=== PATIENT | female | born 1955 | race Caucasian/White ===

== ENCOUNTER 2020-11-03 11:30 | Observation (INO) ==
--- NOTE | 2020-08-24 14:23 | PAT Medication Instructions ---
Medication Instructions Date of Service August 24, 2020 Home Medications aspirin 81 mg tablet,delayed release 81 mg PO QAM latanoprost 0.005 % eye drops 1 drp OPB HS multivitamin 1 tab PO QAM valsartan 160 mg-hydrochlorothiazide 25 mg tablet 1 tab PO QAM celecoxib [Celebrex] 200 mg PO DAILY PRN ASK your surgeon for instructions celecoxib [Celebrex] 200 mg PO DAILY PRN DO NOT take the morning of surgery multivitamin 1 tab PO QAM valsartan 160 mg-hydrochlorothiazide 25 mg tablet 1 tab PO QAM Take morning of surgery With a small sip of water, OTHERWISE NOTHING TO EAT OR DRINK AFTER MIDNIGHT: aspirin 81 mg tablet,delayed release 81 mg PO QAM Take evening before surgery latanoprost 0.005 % eye drops 1 drp OPB HS Other Notes If you have any questions please call us at [phone] or [phone] or [phone] or [phone]
--- NOTE | 2020-08-27 08:27 | Anesthesiology Consultation ---
Date of Service August 27, 2020 Assessment & Plan (1) Encounter for pre-operative examination: COVID Status: As of 08/27 assessment, patient denies travel to endemic area, known exposure/sick contacts, or symptoms of COVID19. Patient instructed that they and their household members must follow strict social distancing guidelines, wear a mask in public and avoid travel/events/gatherings for 14 days prior to surgery. Preoperative COVID19 testing to be completed prior to surgery per surgeon's arrangements (10/04). Patient made aware to self-isolate as much as possible between COVID testing and surgery. Chart Review Chart Review: Acceptable Risk for Surgery and Patient seen in Pre Admission Testing Teaching & Discussion Instructed NPO after midnight before surgery, except medications with 15 cc of water. Medication instructions provided according to the PAT guidelines. History Surgery Operation Date: 10/08/20 07:15 Proposed Procedures p Right Total Knee Arthroplasty - Darci Levine MD Height/Weight Height: 5 ft 3 in Weight: 80.1 kg Allergies Allergy/AdvReac Type Severity Reaction Status Date / Time No Known Allergies Allergy Verified 08/20/20 15:25 Medications Home Medications Medication Instructions Recorded Confirmed Last Taken aspirin 81 mg tablet,delayed 81 mg PO QAM 05/14/20 08/20/20 Unknown release latanoprost 0.005 % eye drops 1 drp OPB HS 05/14/20 08/20/20 Unknown multivitamin 1 tab PO QAM 05/14/20 08/20/20 Unknown valsartan 160 1 tab PO QAM 05/14/20 08/20/20 Unknown mg-hydrochlorothiazide 25 mg tablet celecoxib [Celebrex] 200 mg PO DAILY PRN 08/20/20 08/20/20 Unknown Past Medical History Medical History Glaucoma HTN (hypertension) Hx of breast cancer RT (SURGERY AND CHEMO) Osteoarthritis Right knee DJD Exercise / Class Metabolic Activity II 4-5 Yardwork/Stairs/Walk up hill Past Family History Family History Other Breast cancer No family history of adverse response to anesthesia Past Surgical History Surgical History History of colonoscopy History of mastectomy RT History of tonsillectomy and adenoidectomy Hx of total hysterectomy [place] teeth removed Past Anesthesia History No Hx of Anesthesia Complications and No Family Hx of Anesthesia Complications History of PONV No Hx of PONV and No Hx of Motion Sickness (single episode of seasickness) Social History Smoking Status: Never smoker Do You Dip or Chew Tobacco: No Hx Alcohol Use: Yes Alcohol type: wine alcohol intake frequency: holidays/special occasions only substance use type: does not use Review of Systems Pt denies any recent chest pain, shortness of breath, palpitations, cough, fever, URI, or uncontrolled acid reflux. Physical Exam Vital Signs BP: 148/84 P: 96bpm SPO2: 99% RA T: 98.5 F R: 16 ENMT Mouth: + restricted motion of mouth and + small oral opening Thyromental Distance: < 3.5 Finger Breadths (3) Mallampati Class: III Neck neck extension not limited Respiratory normal respiratory effort, lungs clear to auscultation Cardiovascular RRR, no murmur, no edema Testing Laboratory Results 08/27/20 08:40 08/27/20 08:40 PT 9.9 Seconds (9.0-12.0) 08/27/20 08:40 INR 1.0 (0.9-1.1) 08/27/20 08:40 APTT 24.0 Seconds (21.0-31.0) 08/27/20 08:40 Blood Type A Positive 08/27/20 08:40 Antibody Screen NEGATIVE 08/27/20 08:40 Electrocardiogram Date: 08/27/20 Findings: + NSR @ (81bpm) Chest X-Ray Date: 08/27/20 Findings: + NAD
--- NOTE | 2020-08-27 09:11 | XRay Report ---
XR chest Pre-admission PA/Lat CLINICAL HISTORY: Preoperative chest COMPARISON STUDY: No previous studies for comparison. FINDINGS: The heart is borderline enlarged. There is no failure. There is no focal pulmonary consolid ation. There are no pleural effusions. Post surgical changes involve the right breast.[ IMPRESSION: No active disease in the chest. ACT 112: Negative or not required by law. Electronically signed by: Bernard Palacios M.D. 08/27/2020 9:10 AM
[2020-08-27 09:59] LABS: Basophils # (auto) 0.11 K/uL (0-0.2); Basophils % (auto) 1.6 %; Eosinophils # (auto) 0.18 K/uL (0-0.5); Eosinophils % (auto) 2.6 %; Hematocrit (blood only) 41.3 % (37-47); Hemoglobin 13.6 g/dL (12.0-16.0); Immature Granulocytes # (auto) 0.01 K/uL (0.00-0.02); Immature Granulocytes % (auto) 0.1 %; Lymphocytes # (auto) 1.52 K/uL (1.2-3.4); Lymphocytes % (auto) 21.7 %; Mean Corpuscular Hemoglobin 30.5 pg (25-34); Mean Corpuscular Hgb Conc 32.9 g/dL (32-36); Mean Corpuscular Volume 92.6 fL (80-100); Monocytes # (auto) 0.68 K/uL (0.11-0.59); Monocytes % (auto) 9.7 %; Neutrophils # (auto) 4.49 K/uL (1.4-6.5); Neutrophils % (auto) 64.3 %; Platelet Count 401 K/uL (130-400); RDW Coefficient of Variation 13.2 % (11.5-14.5); RDW Standard Deviation 44.8 fL (36.4-46.3); Red Blood Count 4.46 M/uL (4.2-5.4); White Blood Count 6.99 K/uL (4.8-10.8)
[2020-08-27 10:14] LABS: Partial Thromboplastin Ratio 0.9; Prothrombin Time 9.9 Seconds (9.0-12.0)
[2020-08-27 12:15] LABS: BUN Creatinine Ratio 19.5 (10-20); Calcium 9.7 mg/dl (8.5-10.1); Creatinine Clr Calc Pharmacy 51.6 ml/min; Est GFR (African American) 62.9; Est GFR (Non-African American) 54.3; Potassium 4.4 mmol/L (3.5-5.1)
--- NOTE | 2020-08-27 12:32 | Electrocardiogram Report ---
Test Reason : Blood Pressure : / mmHG Vent. Rate : 081 BPM Atrial Rate : 081 BPM P-R Int : 152 ms QRS Dur : 092 ms QT Int : 404 ms P-R-T Axes : 045 012 030 degrees QTc Int : 469 ms Normal sinus rhythm Normal ECG No previous ECGs available Confirmed by Shahram Soto ([id number]) on 08/27/2020 12:31:43 PM Referred By: Darci Levine Confirmed By:Shahram Soto
--- NOTE | 2020-09-30 22:40 | History and Physical Report ---
DATE OF ADMISSION: 10/08/2020 CHIEF COMPLAINT: Bilateral knee pain and discomfort, right side greater than left. HISTORY OF PRESENT ILLNESS: The patient is a 65-year-old female and mother of Silvia, one of our x-ray techs, who presents for treatment of her knees. She has got a long history of intermittent and progressive increasing knee pain and discomfort. She has had episodes where it has been pretty severe and limiting her walking markedly. Symptoms tend to wax and wane. She limps more as the day goes on. The more she is up on her legs, the more they hurt. Takes Celebrex, which provides a little bit of relief. Not enough to keep her active. She has been through therapy, which made her legs stronger, but did not help the pain. PAST MEDICAL HISTORY: Significant for, 1. Hypertension. 2. Osteoarthritis. 3. Breast cancer, status post treatment, in remission since 2004. PAST SURGICAL HISTORY: Includes, 1. Breast surgery. 2. Hysterectomy. ALLERGIES: None. CURRENT MEDICATIONS: 1. Celebrex. 2. Vitamins. 3. Eyedrops. 4. Unspecified blood pressure medicine. 5. Baby aspirin. SOCIAL HISTORY: A 65-year-old female. She does not smoke. No significant alcohol intake. FAMILY HISTORY: Noncontributory. REVIEW OF SYSTEMS: Negative for diabetes. No chest pain or shortness of breath. No history of DVT or PE. No known bleeding problems. PHYSICAL EXAMINATION: GENERAL: Shows a pleasant, middle-aged female. Looks to be in good health. HEENT: Benign. NECK: Supple, no lymphadenopathy. LUNGS: Clear to auscultation. HEART: Has a regular rate and rhythm. ABDOMEN: Soft, nontender, nondistended. EXTREMITIES: Grossly neurovascularly intact except as follows: Examination of the right knee reveals the patient ambulates with a little bit of limp. She has got slight varus alignment to her right knee. She is tender over the medial joint line. Small knee effusion. Range of motion is near full extension to 125 degrees of flexion. There is no instability. Examination of the left knee reveals slight varus alignment. Trace knee effusion. Tender over the medial joint line. Range of motion 5-125. X-RAYS: X-rays of the knees were reviewed. It shows advanced medial compartment DJD. She has got some lateral compartment disease as well. This has progressed since her films taken 6 ____ ago. ASSESSMENT: A 65-year-old female with advanced bilateral knee degenerative joint disease, right side worse than the left. X-rays have progressed over the past 6 ____. She has failed conservative measures and would like to proceed with right knee replacement. PLAN: We are going to take her to the operating room and do a right total knee replacement. The risks and benefits of this procedure were explained to the patient including but not limited to DVT, PE, , infection, neurological injury, vascular injury, bleeding problem, pain, limited range of motion, stiffness, failure to relieve her symptoms, incomplete relief of symptoms, need for further surgery in the future, fracture, leg length inequality, nerve palsy, etc. The patient understands and desires to proceed. Informed consent was obtained. We will need to update this consent at the time of the surgery. As far as discharge plans, she is planning to be discharged to home using [facility] home health program.
--- NOTE | 2020-10-28 21:44 | History and Physical Report ---
DATE OF ADMISSION: 11/03/2020 CHIEF COMPLAINT: Bilateral knee pain and discomfort, right side greater than left. HISTORY OF PRESENT ILLNESS: The patient is a 65-year-old white female and mother of Silvia, one of our x-ray techs, who presents for treatment of her knees. She has got a long history of intermittent and progressive knee pain and discomfort. The right knee bothers her more than the left. Symptoms do tend to wax and wane, but she has had more bad days than good days. She limps more as the day goes on. The more she is up and on her legs, the more they hurt. She takes Celebrex with little relief. She has been through therapy, which made her legs stronger, but did not help with the pain. She would like to proceed with surgery. She did have this scheduled previously but got canceled due to the COVID epidemic issues. She now would like to have her right knee fixed. PAST MEDICAL HISTORY: 1. Hypertension. 2. Osteoarthritis. 3. Breast cancer, in remission since 2004. PAST SURGICAL HISTORY: Includes, 1. Breast surgery. 2. Hysterectomy. ALLERGIES: None. CURRENT MEDICATIONS: Include, 1. Celebrex. 2. Vitamins. 3. Eye drops. 4. Unspecified blood pressure medicine. 5. Baby aspirin. SOCIAL HISTORY: A 65-year-old female. She is from [place]. Does not smoke. No significant alcohol intake. FAMILY HISTORY: Noncontributory. REVIEW OF SYSTEMS: Negative for diabetes, neurologic problem, vascular problems or bleeding disorders. No history of DVT or PE. No known bleeding problems. PHYSICAL EXAMINATION: GENERAL: Shows a pleasant, middle-aged female. Looks to be in good health. HEENT: Benign. NECK: Supple, no lymphadenopathy. LUNGS: Clear to auscultation. HEART: Has a regular rate and rhythm. ABDOMEN: Soft, nontender, nondistended. EXTREMITIES: Grossly neurovascularly intact except as follows: Examination of the right knee reveals a patient who ambulates independently. She does limp a little bit on the right side. She has got varus alignment to her knee with a small knee effusion. She is tender over the medial joint line. Range of motion is about 5-125. No instability. No pain with hip motion. X-RAYS: X-rays of the knees were reviewed. It shows advanced bilateral knee DJD. She has got a complete loss of her medial joint space and some lateral compartment disease as well. This has progressed since her most recent films. ASSESSMENT: A 65-year-old female with advanced bilateral knee degenerative joint disease, right side more significant than the left. She has failed conservative measures. She would like to have her right knee replaced. She was scheduled previously, got canceled due to the COVID epidemic, but now would like to get her knees fixed. PLAN: We will take her to the operating room and do a right total knee replacement. The risks and benefits of this procedure were explained to the patient including but not limited to DVT, PE, , infection, neurological injury, vascular injury, bleeding problem, pain, limited range of motion, stiffness, failure to relieve her symptoms, incomplete relief of symptoms, need for further surgery in the future, fracture, leg length inequality, nerve palsy, etc. The patient understands and desires to proceed. Informed consent was obtained. She is planning to be discharged to home using the [facility] home health program.
[~2020-11-03 11:30] MED LIST: ACETAMINOPHEN 500 MG TAB PO SCH; BUPIVACAINE 0.25% 30 ML VIAL ONE; BUPIVACAINE 0.5 % 5 MG/1 ML PF 10ML VIAL ONE; BUPIVACAINE LIPOSOME/PF 266 MG, BUPIVACAINE/EPINEPHRINE 50 ML, SODIUM CHLORIDE 0.9% 30 ... INFIL SCH; FAMOTIDINE 20 MG TAB PO SCH; GABAPENTIN 300 MG CAP PO SCH; LR 500ML BOLUS, THEN 15ML/HR IV SCH; LR 60ML/HR IV SCH; METOCLOPRAMIDE HCL 10 MG TABLET PO SCH; Scopolamine 1 MG TDSY TD SCH; Scopolamine CHECK PATCH PLACEMENT SCH; TRANEXAMIC ACID 1,000 MG **IV Intra-op IV SCH; ceFAZolin 2000MG 2,000 MG/15 ML SYR IV SCH
[2020-11-03] MEDS ORDERED: PHENYLEPHRINE 100MCG/ML 5ML SYR ONE (11:42)
[2020-11-03] MEDS ORDERED: LIDOCAINE HCL 2% 2 ML VIAL/AMP(20MG/ML) INFIL ONE (11:42)
[2020-11-03] MEDS ORDERED: ePHEDrine sulfate 50 MG/ML SYR ONE (11:42)
[2020-11-03] MEDS ORDERED: PROPOFOL IV EMULSION 10 MG/ML 20 ML VIAL IV ONE ×2 (11:42→14:42)
[2020-11-03] MEDS ORDERED: fentaNYL citrate 100 MCG/2 ML VIAL ONE ×2 (11:43→14:42)
[2020-11-03] MEDS ORDERED: MIDAZOLAM HCL 1 MG/ML 2ML VIAL ONE (11:43)
--- NOTE | 2020-11-03 12:21 | History & Physical Bridge Note ---
Date of Service November 03, 2020 History & Physical Bridge Note I have examined the patient, reviewed the History & Physical and in the interval since the performance of the History & Physical I have noted the following changes of clinical significance: no changes noted
[2020-11-03] MEDS ORDERED: ONDANSETRON INJ 2 MG/ML 2 ML VIAL IV PRN ×2 (13:19→17:11)
[2020-11-03] MEDS ORDERED: fentaNYL citrate 100 MCG/2 ML VIAL IV PRN (13:19)
[2020-11-03] MEDS ORDERED: ATROPINE SULFATE 0.1 MG/ML 10ML SYR IV PRN (13:19)
[2020-11-03] MEDS ORDERED: ePHEDrine sulfate 50 MG/ML AMP IV PRN (13:19)
[2020-11-03] MEDS ORDERED: SODIUM CHLORIDE 0.9% PF 50 ML VIAL ONE (13:43)
[2020-11-03] MEDS ORDERED: BUPIVACAINE 0.25% 30 ML VIAL ONE (13:43)
[2020-11-03] MEDS ORDERED: EPINEPHrine INJ 1 MG/ML AMP ONE (13:44)
[2020-11-03] MEDS ORDERED: BUPIVACAINE LIPOSOME 1.3% 266 MG/20 ML VIAL ONE (13:45)
--- NOTE | 2020-11-03 16:08 | Operative Report ---
Post Operative Report Pre & Post Diagnosis Operation Date: 11/03/20 13:45 Pre-Op Diagnosis: Right Knee Degenerative Joint Disease, Knee Pain Post-Op Diagnosis: Right Knee Degenerative Joint Disease, Knee Pain I identified the patient and participated in the time-out.: Yes Procedure Operation Date: 11/03/20 13:45 Actual Procedures p Right Total Knee Arthroplasty, Cemented(Right) - Darci Levine MD Surgeon Darci Levine MD Soap Worker YANI Amador Estimated Blood Loss 50 Findings Consistent with Post-Op Diagnosis Operative findings were advanced right medial compartment DJD. She had bone-on- bone disease of the medial compartment. Not a lot of eburnation but exposed bone of the distal femur and proximal medial tibia. That the patellofemoral joint and the lateral compartment revealed some age-related changes but not as severe arthritis. Fluids 700 cc. Specimens Right knee sent for pathology. Drains None. Complications none Disposition Accompanied Patient To Recovery: No Disposition: Recovery Room Indications Patient is a 65-year-old female whose had about a year history of increasing r ight knee pain discomfort is gotten singly worse over the past 6 months. She failed conservative measures. X-rays showed progressive knee arthritis even just over the past 6 months. She failed conservative measures and elected proceed with surgical treatment. Description of Procedure Operative implants consist of: 1. Biomet Vanguard size 62.5 right posterior stabilized femoral component. 2. Biomet size 67 tibial tray. 3. 10 mm posterior stabilized polyethylene insert. 4. 28 x 8 all polypatella. Patient was taken the operating room, identified, placed on the operating table supine position but all contractors were properly padded. IV antibiotics 5 by anesthesia team. A spinal anesthetic and abductor canal block had provided in the holding area. Meyers catheter was placed in sterile fashion. Right thigh turn was then placed in the right lower extremities and prepped and draped in usual sterile fashion. The right leg was elevated and exsanguinated with use of an Esmarch and turns placed at 300 mmHg. An anterior approach to the right knee was then performed to longitudinal incision centered over the patella. Sharp dissection got through subcutaneous tissue down to the extensor mechanism. Medial parapatellar arthrotomy incision was made. Some subperiosteal dissection was carried out medially. The fat pad was resected from each patella tendon. Lateral patellofemoral ligament was released. Patella was subluxated laterally and the knee was flexed. The osteophyte taken off the distal femur. The ACL and PCL were then released in the distal femur and the tibia subluxated anteriorly. The external treatment line jig was then placed in the interface the tibia and adjusted 14 mm medially. Proximal tibial cut was made to remove about 2 to 3 mm of bone from the most deficient aspect medial tibial plateau. The tibia was sized to a size 67. Attention drawn the femur. The distal femur was entered with a sharp drop with intramedullary canal was suction. A right 5 degree valgus cutting guide was placed. Distal femoral cutting block was pinned in place. Distal femoral cut was made to take an additional 3 mm bone off distal femur. The femur was then sized to a size 62.5. We did downsize this almost a whole size due to the narrow medial and lateral dimensions. The AP cutting block was pinned parallel to the epicondylar axis which was 3 degrees of external rotation. The anterior cut, anterior chamfer, posterior cut, posterior chamfer cuts were made. Box cutting guide was placed in just slight lateral box cut was made. The knee was flexed. The remnants of the medial and lateral menisci were excised. The osteophytes were taken off the posterior aspect the femur. Trial femoral component was placed. The tibial tray was pinned in maximum external rotation and the drill and stem punch were used to create defect in proximal tibia for the tibial tray. Knee was then trialed with a 10 mm insert fit most appropriately. Attention drawn the patella. The patella was cleaned of all soft tissues. Patella thickness measured 20 mm in thickness was cut down to 13. Sized to a size 28 patella. The lug holes were drilled for the 28 patella. The lateral osteophyte is moved. Patella button was placed. Knee was taken through range of motion and the patella tracked nicely with no thumbs test. Attention turned to placing permanent components. All trial components were removed. Bone plug was placed in the distal femur limit blood loss. Double batch Palacos G cement was mixed. Biomet Collarityguard size 62.5 right posterior stabilized femoral component, size 67 tibial tray, 10 mm posterior stabilized polyethylene insert, and a 28 x 8 all polypatella were then cemented in place. Knee was brought out into full extension until cement hardened. Final cement check was then performed. Pericapsular tissues were injected with total 100 cc of combination 20 cc of Exparel, 30 cc normal saline, 50 cc of quarter percent Marcaine with epinephrine. Patient did receive 1 g tranexamic acid per the turn was then let down for final turn time 54 minutes. Hemostasis assured use electrocautery. The extensor mechanism closed with combination 1 PDS suture #1 Vicryl suture in [id number] fashion. Extensor mechanism checked found to be intact the subcutaneous tissues then closed with 2 Dexon suture in a buried interrupted fashion skin was closed skin gracy. Leg was then cleaned dried a sterile dressing was Xeroform, 4 x 4's, sterile cast padding, Ck bandage were applied. Patient transferred to the recovery room in stable condition. Patient tolerated procedure well no complications. Simone Amador, my physician assistant printer floor covering, was present for the entire procedure. His assistance was essential and required for appropriate patient positioning, prepping and draping, surgical exposure, performing the technical details of the operation, placement the implants, closure of the wound, and placement of the sterile bandage. I attest to the content of the Intraoperative Record and any orders documented therein. Any exceptions are noted below.
--- NOTE | 2020-11-03 16:15 | XRay Report ---
TWO VIEWS RIGHT KNEE CLINICAL HISTORY: Postoperative examination. FINDINGS: AP and crosstable lateral portable views of the right knee are obtained. A right knee arthr oplasty is in near anatomic alignment. There has been undersurface remodeling of the patella. No acut e fracture is seen. There are expected postoperative changes around the knee including skin clips, so ft tissue edema, and subcutaneous gas. IMPRESSION: Expected postoperative changes status post right knee arthroplasty. No acute fracture is seen. ACT 112: Negative or not required by law. Electronically signed by: Kamari Sanches M.D. 11/03/2020 4:14 PM
--- NOTE | 2020-11-03 16:25 | Anesthesiology Progress Note ---
Date of Service November 03, 2020 Anesthesia Post Procedure Vital Signs Vital Signs: Temp Pulse Pulse Resp BP Pulse Ox 11/03/20 16:20 36.7 C 88 14 125/64 100 11/03/20 16:10 86 14 116/55 L 100 11/03/20 16:00 89 17 97/46 L 100 11/03/20 15:51 36.2 C L 109 H 16 97/46 L 98 11/03/20 12:59 172/102 H 11/03/20 12:43 37.1 C 100 H 20 177/96 H 96 Transfer of Care Handoff Completed per policy Notes Mental Status: alert / awake / arousable and participated in evaluation Patient Amnestic to Procedure: Yes Nausea / Vomiting: adequately controlled Pain: adequately controlled Airway Patency, RR, SpO2: stable & adequate BP & HR: stable & adequate Hydration State: stable & adequate Anesthetic Complications: no major complications apparent and Pt Satisfied with anesthetic care
[2020-11-03] MEDS ORDERED: bisacodyL 10 MG SUPP PR PRN (17:11)
[2020-11-03] MEDS ORDERED: NALOXONE HCL 0.4 MG/1 ML VIAL/CARP IV PRN (17:11)
[2020-11-03] MEDS ORDERED: HYDROmorphone INJ 0.5 MG/0.5 ML SYR IV PRN (17:11)
[2020-11-03] MEDS ORDERED: METOCLOPRAMIDE HCL INJ 5 MG/ML 2 ML VIAL IV PRN (17:11)
[2020-11-03] MEDS ORDERED: oxyCODONE HCL IR 5 MG TAB (IMMEDIATE RELEASE) PO PRN (17:11)
[2020-11-03] MEDS ORDERED: ALUMINUM/MAGNESIUM SUSP 30 ML UDC PO PRN (17:11)
[2020-11-03] MEDS ORDERED: MAGNESIUM HYDROXIDE SUSP 30 ML UDC PO PRN (17:11)
[2020-11-03] MEDS: Scopolamine CHECK PATCH PLACEMENT SCH ×2 (18:19→22:51)
[2020-11-03] MEDS: KETOROLAC TROMETHAMINE 15 MG/ML VIAL IV SCH ×2 (18:21→22:51)
[2020-11-03] MEDS: FERROUS GLUCONATE 324 MG TAB PO SCH (18:23)
[2020-11-03] MEDS: SODIUM CHLORIDE 0.9% 1000ML 1,000 ML IV SCH (18:23)
[2020-11-03] MEDS: ASCORBIC ACID 500 MG TAB PO SCH (18:24)
[2020-11-03] MEDS ORDERED: SENNA 8.6 MG TAB PO SCH (21:00)
[2020-11-03] MEDS ORDERED: LATANOPROST 0.005% OP SOLN 2.5 ML BTL OPB SCH (21:00)
[2020-11-03] MEDS: ASPIRIN 81 MG ECTAB PO SCH (21:28)
[2020-11-03] MEDS: TAPENTADOL HCL ER 50 MG TABCR PO SCH (21:29)
[2020-11-03] MEDS: DOCUSATE SODIUM 100 MG CAP PO SCH (21:29)
[2020-11-03] MEDS: ACETAMINOPHEN 500 MG TAB PO SCH (21:30)
[2020-11-03] MEDS ORDERED: TRANEXAMIC ACID / 0.7% NACL 1,000 MG/100 ML BAG IV SCH (22:00)
[2020-11-03] MEDS: ceFAZolin 1000MG 1,000 MG/7.5 ML SYR IV SCH (22:51)
[2020-11-04] MEDS: SODIUM CHLORIDE 0.9% 1000ML 1,000 ML IV SCH (03:53)
[2020-11-04] MEDS: ACETAMINOPHEN 500 MG TAB PO SCH (05:21)
[2020-11-04] MEDS: KETOROLAC TROMETHAMINE 15 MG/ML VIAL IV SCH ×2 (05:22→11:34)
[2020-11-04] MEDS: ceFAZolin 1000MG 1,000 MG/7.5 ML SYR IV SCH (05:22)
[2020-11-04 06:41] LABS: Hematocrit (blood only) 33.6 % (37-47); Hemoglobin 10.9 g/dL (12.0-16.0); Mean Corpuscular Hemoglobin 30.4 pg (25-34); Mean Corpuscular Hgb Conc 32.4 g/dL (32-36); Mean Corpuscular Volume 93.6 fL (80-100); Mean Platelet Volume 10.3 fL (7.4-10.4); Platelet Count 318 K/uL (130-400); RDW Coefficient of Variation 13.6 % (11.5-14.5); RDW Standard Deviation 46.4 fL (36.4-46.3); Red Blood Count 3.59 M/uL (4.2-5.4); White Blood Count 12.59 K/uL (4.8-10.8)
[2020-11-04 07:11] LABS: BUN Creatinine Ratio 17.4 (10-20); Calcium 8.2 mg/dl (8.5-10.1); Creatinine Clr Calc Pharmacy 50.8 ml/min; Est GFR (African American) 62.2 ml/min; Est GFR (Non-African American) 53.7 ml/min; Potassium 4.4 mmol/L (3.5-5.1)
--- NOTE | 2020-11-04 07:56 | Progress Notes ---
DATE: 11/04/2020 SUBJECTIVE: A 65-year-old female postop day 1 from right knee replacement. She is doing well. Had a good night. Pain is controlled. No chest pain or shortness of breath. Not feeling dizzy or lightheaded. OBJECTIVE: VITAL SIGNS: Temperature 36.8. Vital signs stable. GENERAL: Shows a pleasant, middle-aged female. She is sitting up in bed and talking to her daughter and looks quite comfortable. EXTREMITIES: Examination of the right leg reveals the leg to be well aligned. She can dorsiflex and plantarflex her foot appropriately. She is neurologically intact. LABORATORY DATA: Hemoglobin is 10.9. Hematocrit 33.6. White cell count 12.59. Electrolytes are stable. ASSESSMENT: A 65-year-old female postop day 1 from right knee replacement, doing quite well. Pain is controlled. She is neurologically intact. PLAN: 1. DVT prophylaxis including thigh-high TEDs, SCDs, and aspirin twice a day. 2. PT/OT. Weight bear as tolerated. Right total knee protocol. 3. Pain control, doing well with current pain regimen. 4. Disposition: Plan to discharge to home with some home health later today if she does okay in therapy.
[2020-11-04] MEDS ORDERED: dexAMETHasone 4 MG TAB PO SCH (08:00)
[2020-11-04] MEDS: Scopolamine CHECK PATCH PLACEMENT SCH (08:11)
[2020-11-04] MEDS: ASCORBIC ACID 500 MG TAB PO SCH (08:12)
[2020-11-04] MEDS: FERROUS GLUCONATE 324 MG TAB PO SCH (08:12)
[2020-11-04] MEDS: DOCUSATE SODIUM 100 MG CAP PO SCH (08:13)
[2020-11-04] MEDS: ASPIRIN 81 MG ECTAB PO SCH (08:13)
[2020-11-04] MEDS: TAPENTADOL HCL ER 50 MG TABCR PO SCH (08:16)
[2020-11-04] MEDS ORDERED: VALSARTAN 80 MG TAB PO SCH (09:00)
[2020-11-04] MEDS ORDERED: MULTIVITAMIN TAB PO SCH ×2 (09:00)
[2020-11-04] MEDS ORDERED: hydroCHLOROthiazide 25 MG TAB PO SCH (09:00)
--- NOTE | 2020-11-09 06:23 | Discharge Summary ---
Date of Service November 09, 2020 Discharge Data Procedures Performed Operation Date: 11/03/20 13:45 Actual Procedures p Right Total Knee Arthroplasty, Cemented(Right) - Darci Levine MD Hospital Course (1) Status post total right knee replacement: This patient is a 65 year old female admitted on 11/03/20 and underwent total knee arthroplasty. She tolerated the procedure well and there were no complications. Transferred to the PACU post op and later to the orthopedic floor for further care. She was given ancef for antibiotic prophylaxis. She was also given COCO stockings, SCDs, and aspirin for DVT prophylaxis. Hemoglobin, hematocrit, and vital signs were monitored during her hospital stay and remained stable. Did not require any blood transfusions. There were no complications during her hospital stay. By post op day #1 the patient was tolerating a regular diet, pain was reasonably controlled with oral pain medicine, and she was participating in physical therapy. On post op day #1 the patient was discharged home and set up with home health care. She was given printed discharge instructions including prescriptions for extra strength tylenol, aspirin, and oxycodone. Continue physical therapy, weight bearing as tolerated. Continue COCO stockings. Follow up approximately 2 weeks post op or sooner if there are problems or concerns. Coding Level of Care Code None Diagnoses Status post total right knee replacement Z96.651
== END 2020-11-04 13:49 | disposition home health service (06) ==
LOC: 3E 11:30 → ASU 11:30